=== PATIENT | female | born 1980 | race Two or more races ===

== ENCOUNTER 2019-09-30 23:33 | Emergency (ER) | payer SELFPAY ==
[~2019-09-30] VITALS: Ht 160 cm; Wt 97.5 kg
[2019-09-30 23:38] VITALS: BP 147/65
[2019-10-01] MEDS ORDERED: HYDR-3164 PO (00:42)
[2019-10-01] MEDS ORDERED: CEPH-264 PO (00:42)
--- NOTE | 2019-10-01 00:43 | PHYS DOC ---
Past Medical History Past Medical History: No Pertinent History Past Surgical History: No Surgical History Alcohol Use: None Drug Use: None Adult General Chief Complaint Chief Complaint: ABSCESS HPI HPI Patient is a 39 year old female who presents with a abscess to the right side below the axillary. Patient states been there for 2 days. It is a hard pink raised piece size bump that is tender to palpation. Review of Systems Review of Systems Integument: abscess to right side below axillary. Denies rash or skin lesions [] All other systems were reviewed and found to be within normal limits, except as documented in this note. Allergies Allergies Allergies Coded Allergies Type Severity Reaction Last Updated Verified No Known Drug Allergies 09/30/19 No Physical Exam Physical Exam Constitutional: Well developed, well nourished, no acute distress, non-toxic appearance. [] HENT: Normocephalic, atraumatic, bilateral external ears normal, oropharynx moist, no oral exudates, nose normal. [] Eyes: PERRLA, EOMI, conjunctiva normal, no discharge. [] Neck: Normal range of motion, no tenderness, supple, no stridor. [] Cardiovascular:Heart rate regular rhythm, no murmur [] Lungs & Thorax: Bilateral breath sounds clear to auscultation [] Abdomen: Bowel sounds normal, soft, no tenderness, no masses, no pulsatile masses. [] Skin: pink, tender, nonfluctuant abscess to right side below axillary. Warm, dry, no erythema, no rash. [] Back: No tenderness, no CVA tenderness. [] Extremities: No tenderness, no cyanosis, no clubbing, ROM intact, no edema. [] Neurologic: Alert and oriented X 3, normal motor function, normal sensory function, no focal deficits noted. [] Psychologic: Affect normal, judgement normal, mood normal. [] Current Patient Data Vital Signs Vital Signs Date Time Temp Pulse Resp B/P (MAP) Pulse Ox O2 Delivery O2 Flow Rate FiO2 09/30/19 23:38 98.1 107 14 147/65 (92) 100 Room Air 98.1 EKG EKG [] Radiology/Procedures Radiology/Procedures [] Course & Med Decision Making Course & Med Decision Making No associated cellulitis. Rates her pain a 10 out of 10 especially when she is moving her arm and reaching for things. No swelling of the breast or streaking. Afebrile and denies running any Fevers, breast drainage, body aches, nausea, vomiting. Nonfluctuant and pink in color. States is it tender burning sensation. Patient follow up with primary care provider. I have provided them with a pamphlet to get a primary care physician. I have also prescribed antibiotics and pain medication. Dragon Disclaimer Dragon Disclaimer This electronic medical record was generated, in whole or in part, using a voice recognition dictation system. Departure Departure Impression: Primary Impression: Abscess Disposition: HOME, SELF-CARE Condition: STABLE Referrals: NO PCP (PCP) Patient Instructions: Abscess Additional Instructions: Follow up with primary care provider. Take medications as prescribed. Scripts Hydrocodone/Apap 5-325 (NORCO 5-325 TABLET) 1 Each Tablet 1 TAB PO PRN Q6HRS PRN for PAIN, #10 TAB 0 Refills Prov: OSMEL ARELLANO APRN 10/01/19 Cephalexin (KEFLEX) 500 Mg Capsule 500 MG PO QID for 10 Days, #40 CAP Prov: OSMEL ARELLANO [employer] CLERK 10/01/19 OSMEL ARELLANO [employer]OR[employer] CLERK Oct 01, 2019 00:43
== END 2019-10-01 00:44 | disposition home or self-care (01) ==
LOC: ER 23:33
DX: L02.411 Cutaneous abscess of right axilla (principal); R00.2 Palpitations
CPT/HCPCS: 99283